=== PATIENT | male | born 1960 | race Caucasian/White ===

== ENCOUNTER → 2017-01-19 | Day surgery (SDC) | payer OTHER ==
[~2017-01-19] MED LIST: ACETAMINOPHEN 325 MG TAB ONE; BACITRACIN IM FOR SOLN 50,000 UNIT VIAL ONE; BUPIVACAINE HCL PF 0.75% 30 ML VIAL ONE; BUPIVACAINE/EPINEPHRINE 0.25% 50 ML VIAL ONE; LACTATED RINGER'S 1000 ML INJ 1,000 ML ONE; LIDOCAINE 1.5%/EPINEPHrine 1:200,000 PF SOLN 30 ML AMP NERV BLOCK ONE; MEPERIDINE HCL 25 MG/ML VIAL ONE; MIDAZOLAM HCL 5 MG/ML VIAL (1 ML) ONE; ONDANSETRON HCL 4 MG/2 ML VIAL IV PUSH ONE; PROPOFOL 200 MG/20 ML AMP IV ONE; SODIUM CHLORIDE 0.9% INJ 10 ML ONE; ceFAZolin INJ 1,000 MG VIAL ONE
--- NOTE | 2017-01-19 12:44 | TN ---
cc: BK ACUNA M.D. DATE OF SURGERY 01/19/2017 PREOPERATIVE DIAGNOSIS Left shoulder rotator cuff tear daily. POSTOPERATIVE DIAGNOSIS 1. Left shoulder rotator cuff tear daily. 2. 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 PROCEDURE PERFORMED 1. Open left shoulder rotator cuff repair including Acromioplasty. 2. Left shoulder partial distal clavicle excision 10 mm. SURGEON Bk Acuna MD ANESTHESIA General via laryngeal mask augmented by interscalene block and local infiltration BLOOD LOSS Approximately 25 cc FLUID REPLACEMENT 900 cc of crystalloid. SPECIMEN No specimens were sent. COUNTS All counts were correct. COMPLICATIONS There were no intraoperative complications. IMPLANTS Consisted of two Arthrex 5.5 mm Bio-Corkscrew anchors with four FiberWire sutures each and two Arthrex 4.5 mm Bio-Push locks without suture. INDICATIONS FOR THE PROCEDURE Mr. Qiu is a 56-year-old gentleman who has a known history of a left shoulder rotator cuff tear that was being managed conservatively for many years. He had recently had worsening of his pain and his discomfort and the rotator cuff tear had enlarged in size. Due to the persistence of his symptoms, he was being taken to the operating room for left shoulder rotator cuff repair and distal clavicle excision. He was aware of the risks, benefits and potential complications of the procedure and full written informed consent was obtained. He was familiar with the procedure as he had had a right shoulder surgery in the past by another physician. DESCRIPTION OF THE PROCEDURE After the patient was appropriately identified in the holding area, he had correctly marked his left shoulder for surgery and I had initialed it as well. He was given an interscalene block by Dr. aZrco in the holding area which was very effective. He was given one gram of intravenous Ancef as prophylactic antibiotic and he was taken to the operating suite where he was placed under general laryngeal mask anesthetic by Dr. Varghese. He was then placed into the beach-chair position and was placed into a well-padded beach chair position with a left arm free and then he was prepped with alcohol and Hibiclens in the normal standard fashion. He was draped with the left arm free including the use of an impervious stockinette from the hand all the way up to the mid humerus level. At this time, we had a brief time-out confirming the left shoulder was the appropriate surgical site. The team was in full agreement and the case was now officially begun. A 5-cm incision was made directly over the acromioclavicular joint. The subcutaneous tissue was divided with electrocautery. He had a fair amount of subcutaneous bleeding was encountered which was meticulously hemostased with the use of electrocautery. As I began to dissect down onto the acromioclavicular joint, I did a subperiosteal dissection at that level and there was not only osteophyte formation on the dorsal surface anteriorly, but I went ahead and elected to perform a partial distal clavicle excision to prevent this from being a painful site in the future. Please note that he had significant subclavicular impingement in addition to the subacromial impingement that was found. At this time, the deep deltoid fascia was divided and a buckley of joint fluid came through consistent with a full-thickness tear. As I began to release the deltoid in line with its fibers for approximately 1 cm, it was further decompressing the subacromial space. There I found no evidence of a full-thickness retracted tear involving the supraspinatus with extension into the infraspinatus as well as the subscapularis. There was a very large osteophyte that was present that was actually impinging on the surface tear. At this time, a bursectomy was performed in the subacromial space to further clean the surface of the rotator cuff and I was able to see that the overall thickness of the remaining cuff was quite good and that the bursa tissue was extremely thickened as well. Once I debrided all the inflamed tissue, I freshened the leading edge of the rotator cuff with a second 15 blade and made a trough at the greater tuberosity with the use of rongeurs in order to prepared it for a rotator cuff repair trough. Good bleeding bone was obtained on the trough side and I was able to get rid of the rest of the normal footprint soft tissue of the tendon. At this time, I went ahead and placed two 5.5 mm Bio-Corkscrews with four #2 FiberWire sutures in each suture directly at the area of the greater tuberosity with separation of approximately 1 cm. It was at this point in time that I decided to explore through the cuff tear into the glenohumeral joint order to be certain that there was no significant chondral pathology, loose bodies, labral tear or biceps rupture. I was able to see quite well through the cuff tear itself due to the size of it. I was able to identify the biceps tendon which was intact and uninflamed and there was minimal chondromalacia of the glenohumeral joint. I was able to inspect the majority of the labrum from the anterior aspect of it all the way to approximately the 4 o'clock position due to the fact that I could sublux it inferiorly with this approach. The glenohumeral joint was thoroughly irrigated with antibiotic-containing saline at this point in time and I went ahead and then began doing the medial row repair with the initial anchors that had been placed. I passed eight sutures through the leading edge of the tear making a total of four very oseguera horizontal mattress sutures that pull the cuff tear together quite well. When I reapproximated then down to bone, I elevated the arm approximately 25 degrees, abducted to neutral position and slightly internally rotated it which took all the pressure off the rotator cuff at this point. As I began to tie down the medial row, I was quite satisfied that we had an excellent watertight repair at this point in time that was essentially anatomic. There was some very subtle puckering of the medial row repair site so I went ahead and placed two 4.5 mm Bio-Push locks with four suture tails each making a standard speed bridge getting further smoothing of the repair site and also putting in a secondary line of reinforcement for the repair. Once this was completed, the humeral head and the cuff moved fluidly with one another and there was no evidence of any laxity of the cuff in any plane. It was at this point in time that he had the wound thoroughly irrigated once again. The tissues were irrigated with antibiotic-containing saline. The periosteal tissue was closed in one full thickness sleeve with some of the remaining #2 FiberWire suture and then further anteriorly he was closed with 2-0 Vicryl suture material. Once the skin was reapproximated well, we washed the surface so it was fully clean and then the subcutaneous tissues were closed with 2-0 Vicryl inverted subcutaneous stitches. The skin was then closed with Vicryl further proximally as well. I went ahead and then applied sin to close the skin edges. The skin came together quite well. There was Xeroform, 4x4s, ABD's and foam tape applied to the wound. Please note that prior to wound closure, I went ahead and injected 20 cc of 0.25% Marcaine with epi to verify that he was going to get some good relief. At this time, he was then dressed with Xeroform, 4x4s, ABD and foam tape. He was placed into a standard sling. He was awoken from anesthesia and taken to recovery in stable condition. Appropriate postoperative orders have been written. Bk Acuna MD Electronically Signed MD DICK Harkins/KARIE /12:09 PM /12:27 PM MTDD
== END | disposition home or self-care (01) ==
LOC: ESDC 08:49
PROVIDERS: ATTEND Orthopaedic Surgery Sports Medicine
DX: M75.122 Complete rotator cuff tear or rupture of left shoulder, not specified as traumatic (principal); M19.012 Primary osteoarthritis, left shoulder; M75.42 Impingement syndrome of left shoulder
CPT/HCPCS: 00450; 01630; 01991; 23120; 23420; 64417; C1713; J0690; J2175; J2250; J2405; J7120